=== PATIENT | female | born 1955 | race African-American/Black ===

== ENCOUNTER 2025-03-23 13:01 | Inpatient (IN) | payer MEDICARE, MEDICAID ==
[~2025-03-23] VITALS: Ht 162.6 cm; Wt 87.7 kg
[~2025-03-23 13:01] MED LIST: AMLO10TA80 PO; ATOR40TA70 PO; FURO40TA5 PO; GABA-529 PO; HYDR100T31 PO; IPRA3AMP9 HHN; METH4TAB95 MT; MONT-46 PO; TRAZ-251 PO
[2025-03-23 15:32] LABS: BASOPHILS % 0.9 % (0.0-2.0); EOSINOPHILS % 1.2 % (0.0-5.0); HEMATOCRIT. 37.2 % (36.0-48.0); HEMOGLOBIN. 11.4 g/dL (12.0-16.0); LYMPHOCYTES % 10.1 % (20.0-50.0); MEAN PLATELET VOLUME 8.4 fl (7.4-10.4); MONOCYTES % 11.0 % (2.0-8.0); NEUTROPHILS % 76.8 % (40.0-76.0); PLATELET 322 x1000/uL (130-400); RED BLOOD CELL COUNT 3.98 mill/uL (4.2-5.4); RED CELL DISTRIBUTION WIDTH 17.0 % (11.6-14.6)
[2025-03-23 15:47] LABS: UREA NITROGEN BLOOD 22 mg/dL (9-23)
[2025-03-23 15:49] LABS: ASPARTATE AMINOTRANSFERASE 13 IU/L (<34)
[2025-03-23 15:50] LABS: BILIRUBIN DIRECT 0.2 mg/dL (<=3.0); BILIRUBIN TOTAL 0.3 mg/dL (0.1-1.0); PROTEIN TOTAL 6.5 g/dL (6.0-8.3)
[2025-03-23 15:51] LABS: CREATININE 1.6 mg/dL (0.6-1.0)
[2025-03-23 16:11] LABS: TROPONIN I HIGH SENSITIVITY 1190 ng/L (3.0-34)
[2025-03-23] MEDS: CEFTRIAXONE 1GM/50ML 50 ML IV ONE (16:28)
[2025-03-23] MEDS: SODIUM CHLORIDE 0.9% 100 ML IV ONE (16:29)
[2025-03-23] MEDS ORDERED: MAGNESIUM/ALUMINUM HYDROXIDE/SIMETHICONE 30ML UDC PO PRN (16:30)
[2025-03-23] MEDS ORDERED: NALOXONE HCL 0.4MG/ML VIAL IV PRN (16:30)
[2025-03-23] MEDS ORDERED: ONDANSETRON HCL 4MG/2ML INJ IV PRN (16:30)
[2025-03-23] MEDS ORDERED: DEXTROSE 50% WATER 50ML SYRINGE IV PRN (16:30)
[2025-03-23] MEDS ORDERED: HYDROCODONE/ACETAMINOPHEN 5/325MG TABLET PO PRN (16:30)
[2025-03-23] MEDS ORDERED: MORPHINE SULFATE 2 MG/ML INJ (NOT FOR IM USE) IV PRN (16:30)
[2025-03-23 16:56] LABS: INR 1.0
[2025-03-23] MEDS: BLOOD SUGAR DIAGNOSTIC STRIP TEST SCH (17:00)
[2025-03-23] MEDS: AZITHROMYCIN 500MG/250ML 250 ML IV ONE (17:19)
[2025-03-23] MEDS: ENOXAPARIN 30MG/0.3ML SYR SUBCUT SCH (17:33)
[2025-03-23] MEDS: PIPERACILLIN/TAZO 3.375G/50ML 50 ML IV SCH (17:33)
[2025-03-23 17:34] LABS: TROPONIN I HIGH SENSITIVITY 1102 ng/L (3.0-34)
[2025-03-23] MEDS: INSULIN LISPRO 100 UNITS/ML SUBCUT SCH (18:20)
[2025-03-23 20:00] VITALS: BP 129/49; PULSE 84; RESP 19; TEMP 36.6; O2SAT 93
[2025-03-23] MEDS ORDERED: IPRATROPIUM/ALBUTEROL 0.5-3(2.5)MG/3ML NEB HHN PRN (21:30)
[2025-03-23 22:00] VITALS: BP 129/49; PULSE 84; RESP 19; TEMP 36.5848
[2025-03-24] VITALS: BP 119/50; PULSE 79; RESP 18; TEMP 36.2; O2SAT 98
[2025-03-24 00:19] LABS: TROPONIN I HIGH SENSITIVITY 1104 ng/L (3.0-34)
[2025-03-24] MEDS: ATORVASTATIN CALCIUM 40MG TABLET PO SCH (01:01)
[2025-03-24] MEDS: VANCOMYCIN 1.25GM/250ML IV SCH (01:01)
[2025-03-24 04:00] VITALS: BP 120/48; PULSE 80; RESP 18; TEMP 36.1; O2SAT 98
[2025-03-24] MEDS: FUROSEMIDE 40MG TABLET PO SCH (06:47)
[2025-03-24 07:46] LABS: BASOPHILS % 0.4 % (0.0-2.0); EOSINOPHILS % 1.8 % (0.0-5.0); HEMATOCRIT. 36.9 % (36.0-48.0); HEMOGLOBIN. 11.1 g/dL (12.0-16.0); LYMPHOCYTES % 7.1 % (20.0-50.0); MEAN PLATELET VOLUME 8.4 fl (7.4-10.4); MONOCYTES % 8.2 % (2.0-8.0); NEUTROPHILS % 82.5 % (40.0-76.0); PLATELET 328 x1000/uL (130-400); RED BLOOD CELL COUNT 3.91 mill/uL (4.2-5.4); RED CELL DISTRIBUTION WIDTH 17.0 % (11.6-14.6)
[2025-03-24 07:53] LABS: CREATININE 1.7 mg/dL (0.6-1.0); UREA NITROGEN BLOOD 23.0 mg/dL (9-23)
[2025-03-24 08:02] LABS: TROPONIN I HIGH SENSITIVITY 1022 ng/L (3.0-34)
[2025-03-24] MEDS: PANTOPRAZOLE SODIUM 40 MG/VIAL IV SCH (09:00)
[2025-03-24] MEDS: HYDRALAZINE HCL 100MG TABLET PO SCH (09:00)
[2025-03-24] MEDS: AMLODIPINE 10MG TABLET PO SCH (09:00)
[2025-03-24] MEDS: GABAPENTIN 100MG CAPSULE PO SCH (09:00)
[2025-03-24] MEDS: ENOXAPARIN 30MG/0.3ML SYR SUBCUT SCH (09:00)
[2025-03-24] MEDS: ENOXAPARIN 60MG/0.6ML SYR SUBCUT SCH (10:00)
[2025-03-24 10:47] LABS: CREATININE 1.7 mg/dL (0.6-1.0); UREA NITROGEN BLOOD 20.0 mg/dL (9-23)
[2025-03-24 12:00] VITALS: BP 146/59; PULSE 84; RESP 16; TEMP 36.3; O2SAT 97
[2025-03-24 16:00] VITALS: BP 140/62; PULSE 76; TEMP 36.4
[2025-03-24] MEDS: MONTELUKAST SODIUM 10MG TABLET PO SCH (19:01)
[2025-03-24] MEDS: IPRATROPIUM/ALBUTEROL 0.5-3(2.5)MG/3ML NEB HHN SCH (20:40)
[2025-03-24] MEDS: VANCOMYCIN 750MG/150ML (BAXTER) IV SCH (20:40)
[2025-03-24 20:42] VITALS: PULSE 93; RESP 20; O2SAT 97
[2025-03-24] MEDS: TRAZODONE HCL 50MG TABLET PO SCH (21:41)
[2025-03-25] VITALS (7 sets, daily range): BP systolic 92–127; BP diastolic 37–81; PULSE 80–92; RESP 13–20; TEMP 36.3–36.7; O2SAT 80–99
[2025-03-25 07:07] LABS: UREA NITROGEN BLOOD 26.0 mg/dL (9-23)
[2025-03-25 07:08] LABS: LACTATE DEHYDROGENASE 188.0 IU/L (120-246)
[2025-03-25 07:09] LABS: HEMATOCRIT. 40.6 % (36.0-48.0); HEMOGLOBIN. 12.3 g/dL (12.0-16.0); MEAN PLATELET VOLUME 8.5 fl (7.4-10.4); PLATELET 333 x1000/uL (130-400); RED BLOOD CELL COUNT 4.33 mill/uL (4.2-5.4); RED CELL DISTRIBUTION WIDTH 17.3 % (11.6-14.6)
[2025-03-25 08:14] LABS: CREATININE 2.3 mg/dL (0.6-1.0)
[2025-03-25] MEDS: FUROSEMIDE 40MG TABLET PO SCH (19:39)
[2025-03-25 22:54] LABS: BAND% 4.0 % (1.0-6.0); LYMPHOCYTES % MANUAL 1.0 % (20.0-60.0); MONOCYTES % MANUAL 7.0 % (2.0-8.0); NEUTROPHILS % MANUAL 88.0 % (45.0-75.0)
[2025-03-25 22:55] LABS: PLATELET ESTIMATE NORMAL
[2025-03-26] VITALS (9 sets, daily range): BP systolic 104–131; BP diastolic 32–61; PULSE 71–94; RESP 13–19; TEMP 36.2–36.6; O2SAT 94–98
[2025-03-26 07:06] LABS: HEMATOCRIT. 38.4 % (36.0-48.0); HEMOGLOBIN. 11.8 g/dL (12.0-16.0); MEAN PLATELET VOLUME 8.6 fl (7.4-10.4); PLATELET 308 x1000/uL (130-400); RED BLOOD CELL COUNT 4.15 mill/uL (4.2-5.4); RED CELL DISTRIBUTION WIDTH 17.0 % (11.6-14.6)
[2025-03-26 07:14] LABS: UREA NITROGEN BLOOD 35.0 mg/dL (9-23)
[2025-03-26 07:31] LABS: CREATININE 3.4 mg/dL (0.6-1.0)
[2025-03-26] MEDS: SODIUM CHLORIDE 0.9% 1,000 ML IV SCH (12:59)
[2025-03-26] MEDS: METHYLPREDNISOLONE SOD SUCC 40MG/ML (ACT-O-VIAL) IV SCH (14:09)
[2025-03-26 16:01] LABS: BG BASE EXCESS -3.8 mmol/L (-2.0-3.0); BG CARBOXYHEMOGLOBIN 1.7 % (0.5-1.5); BG DEOXYHEMOGLOBIN 10.5 % (0.0-5.0); BG FLOW(L/min) 2.00 L/min; BG FRACTION INSPIRED OXYGEN 28; BG HCO3 ACT 22.8 mmol/L (21.0-28.0); BG METHEMOGLOBIN 0.2 % (0.5-1.5); BG OXYGEN SATURATION 89.3 % (94.0-98.0); BG OXYHEMOGLOBIN 87.6 % (94.0-98.0); BG PCO2 47.9 mmHg (32.0-45.0); BG PH 7.296 (7.350-7.450); BG PO2 56.7 mmHg (83.0-108.0); BG SAMPLE SITE RIGHT RADIAL; BG TOTAL HEMOGLOBIN 12.4 g/dL (12.0-16.0); BG VENT MODE NASAL CANNULA
[2025-03-26 17:28] LABS: EOSINOPHILS % MANUAL 3.0 % (0.0-5.0); LYMPHOCYTES % MANUAL 1.0 % (20.0-60.0); MONOCYTES % MANUAL 9.0 % (2.0-8.0); NEUTROPHILS % MANUAL 87.0 % (45.0-75.0); PLATELET ESTIMATE NORMAL
[2025-03-27] VITALS (10 sets, daily range): BP systolic 116–158; BP diastolic 35–88; PULSE 80–95; RESP 16–20; TEMP 35.6–36.6; O2SAT 93–100
[2025-03-27 07:31] LABS: CREATININE 4.3 mg/dL (0.6-1.0); UREA NITROGEN BLOOD 42.0 mg/dL (9-23)
[2025-03-27] MEDS: ZOLPIDEM TARTRATE 5MG TABLET PO PRN (23:20)
[2025-03-28] VITALS (10 sets, daily range): BP systolic 109–141; BP diastolic 29–54; PULSE 79–93; RESP 12–20; TEMP 35.9–36.7; O2SAT 92–99
[2025-03-28] MEDS ORDERED: CEFEPIME 1GM IN DEXT 5% 50ML IV SCH (08:00)
[2025-03-28] MEDS: IPRATROPIUM/ALBUTEROL 0.5-3(2.5)MG/3ML NEB HHN SCH (08:23)
[2025-03-28 08:31] LABS: UREA NITROGEN BLOOD 47.0 mg/dL (9-23)
[2025-03-28 08:41] LABS: CREATININE 5.0 mg/dL (0.6-1.0)
[2025-03-28] MEDS: AZITHROMYCIN 500 MG TABLET PO SCH (08:47)
[2025-03-28] MEDS ORDERED: CEFTRIAXONE 1GM/50ML 50 ML IV SCH (09:00)
[2025-03-28] MEDS: CEFEPIME 1GM/50ML 50 ML IV SCH (09:53)
[2025-03-28] MEDS: METHYLPREDNISOLONE SOD SUCC 125MG/2ML (ACT-O-VIAL) IV SCH (11:46)
[2025-03-29] VITALS (10 sets, daily range): BP systolic 126–167; BP diastolic 45–62; PULSE 58–92; RESP 15–20; TEMP 35.9–36.7; O2SAT 95–98
[2025-03-29 06:14] LABS: UREA NITROGEN BLOOD 52.0 mg/dL (9-23)
[2025-03-29 06:21] LABS: CREATININE 5.7 mg/dL (0.6-1.0)
[2025-03-29] MEDS: SODIUM BICARBONATE 4.2% 2.5MEQ/5ML VIAL IV ONE (07:45)
[2025-03-29 12:45] LABS: BODY FLUID MONOCYTES 6 %; BODY FLUID RBC 7675 /cu mm (0-2000); BODY FLUID WBC 1498 /cu mm (0-200)
[2025-03-30] VITALS (60 sets, daily range): BP systolic 109–162; BP diastolic 41–112; PULSE 78–104; RESP 0–22; TEMP 35–36.8; O2SAT 94–100
[2025-03-30] MEDS ORDERED: TALC 3 GM VIAL IX NR (06:15)
[2025-03-30] MEDS ORDERED: POLYMYXIN B SULFATE 500000 UNITS/VIAL ONE (07:29)
[2025-03-30] MEDS ORDERED: BACITRACIN 14GM TUBE TOP ONE (07:29)
[2025-03-30] MEDS ORDERED: LIDOCAINE HCL/EPINEPHRINE 1%-EPI 1:100,000 20ML VIAL ONE (07:30)
[2025-03-30] MEDS ORDERED: BUPIVACAINE HCL/PF 0.5% (5MG/ML) 10ML ONE (07:30)
[2025-03-30] MEDS ORDERED: PROPOFOL 200MG/20ML VIAL IV ONE (07:39)
[2025-03-30] MEDS ORDERED: ROCURONIUM BROMIDE 10MG/ML VIAL 5ML IV ONE ×2 (07:39→09:34)
[2025-03-30] MEDS ORDERED: FENTANYL CITRATE/PF 50MCG/ML 2ML VIAL ONE ×2 (07:40→08:44)
[2025-03-30 07:41] LABS: CLARITY URINE CLOUDY (CLEAR); COLOR URINE DARK YELLOW (YELLOW); GLUCOSE URINE NEGATIVE (NEGATIVE); KETONES URINE NEGATIVE (NEGATIVE); LEUKOCYTE ESTERASE URINE 2+ (NEGATIVE); NITRITE URINE NEGATIVE (NEGATIVE); OCCULT BLOOD URINE NEGATIVE (NEGATIVE); PH URINE 5.0 (4.5-8.0); PROTEIN URINE 1+ (NEGATIVE); SPECIFIC GRAVITY URINE 1.029 (1.005-1.030); UROBILINOGEN URINE 0.2 E.U./dL (0.2-1.0)
[2025-03-30] MEDS ORDERED: PHENYLEPHRINE HCL 10MG/ML 1ML IV ONE (07:44)
[2025-03-30 08:17] LABS: SQUAMOUS EPITHELIAL CELL URINE RARE /lpf (RARE/1+)
[2025-03-30 08:18] LABS: WBC URINE 50-100 /hpf (0-2)
[2025-03-30 08:19] LABS: BACTERIA URINE 1+; RBC URINE NONE SEEN /hpf (0-2); YEAST URINE 3+
[2025-03-30] MEDS ORDERED: ATROPINE SULFATE 1MG/10ML SYR ONE (08:35)
[2025-03-30 08:47] LABS: *AMPHETAMINES SCREEN URINE NEGATIVE (NEGATIVE); *BARBITURATES SCREEN URINE NEGATIVE (NEGATIVE); *BENZODIAZEPINES SCREEN URINE NEGATIVE (NEGATIVE); *COCAINE SCREEN URINE NEGATIVE (NEGATIVE); CANNABINOID URINE SCREEN NEGATIVE (NEGATIVE); ECSTASY MDMA SCREEN URINE NEGATIVE (NEGATIVE); METHADONE URINE SCREEN NEGATIVE (NEGATIVE); OPIATES URINE SCREEN NEGATIVE (NEGATIVE); PHENCYCLIDINE URINE SCREEN NEGATIVE (NEGATIVE)
[2025-03-30] MEDS: FAMOTIDINE 20MG/2ML VIAL IV SCH (09:00)
[2025-03-30] MEDS ORDERED: SODIUM BICARBONATE 8.4% 50MEQ/50ML SYR IV ONE (09:25)
[2025-03-30] MEDS ORDERED: PROPOFOL 10MG/ML 100ML 100 ML IV ONE (09:30)
[2025-03-30] MEDS ORDERED: CEFAZOLIN SODIUM 1000MG/VIAL ONE (09:38)
[2025-03-30] MEDS ORDERED: EPHEDRINE SULFATE 50MG/ML VIAL ONE (09:39)
[2025-03-30] MEDS ORDERED: ONDANSETRON HCL 4MG/2ML INJ ONE (09:39)
[2025-03-30] MEDS ORDERED: METOCLOPRAMIDE HCL 10MG/2ML VIAL ONE (09:39)
[2025-03-30] MEDS ORDERED: DEXAMETHASONE 4MG/ML 1ML VIAL ONE (09:39)
[2025-03-30 09:43] LABS: BG BASE EXCESS -11.3 mmol/L (-2.0-3.0); BG CARBOXYHEMOGLOBIN 0.7 % (0.5-1.5); BG DEOXYHEMOGLOBIN 0.0 % (0.0-5.0); BG FLOW(L/min) 15.00 L/min; BG FRACTION INSPIRED OXYGEN 100; BG HCO3 ACT 14.9 mmol/L (21.0-28.0); BG METHEMOGLOBIN 0.4 % (0.5-1.5); BG OXYGEN SATURATION 100.0 % (94.0-98.0); BG OXYHEMOGLOBIN 98.9 % (94.0-98.0); BG PCO2 34.7 mmHg (32.0-45.0); BG PH 7.252 (7.350-7.450); BG PO2 386.5 mmHg (83.0-108.0); BG SAMPLE SITE ALINE; BG TOTAL HEMOGLOBIN 12.1 g/dL (12.0-16.0); BG VENT MODE MASK - NRB
[2025-03-30 11:29] LABS: BG BASE EXCESS -7.9 mmol/L (-2.0-3.0); BG CARBOXYHEMOGLOBIN 0.7 % (0.5-1.5); BG DEOXYHEMOGLOBIN 0.3 % (0.0-5.0); BG FRACTION INSPIRED OXYGEN 100; BG HCO3 ACT 19.7 mmol/L (21.0-28.0); BG METHEMOGLOBIN 0.1 % (0.5-1.5); BG OXYGEN SATURATION 99.7 % (94.0-98.0); BG OXYHEMOGLOBIN 98.9 % (94.0-98.0); BG PCO2 48.8 mmHg (32.0-45.0); BG PEEP (cmH2O) 7.0 cmH2O; BG PH 7.224 (7.350-7.450); BG PO2 542.4 mmHg (83.0-108.0); BG SAMPLE SITE ALINE; BG TIDAL VOLUME(mL) 400.0 mL; BG TOTAL HEMOGLOBIN 12.7 g/dL (12.0-16.0); BG TOTAL RESPIRATORY RATE 15 b/min; BG VENT MODE VENT - AC; BG VENT RATE 15.0 set
[2025-03-30] MEDS: SODIUM BICARBONATE 8.4% 50MEQ/50ML SYR IV SCH (12:10)
[2025-03-30 12:22] LABS: UREA NITROGEN BLOOD 61 mg/dL (9-23)
[2025-03-30 12:23] LABS: CREATININE 6.2 mg/dL (0.6-1.0)
[2025-03-30 12:25] LABS: PHOSPHORUS 6.2 mg/dL (2.5-4.9)
[2025-03-30 12:43] LABS: PROTEIN BODY FLUID < 2.0 gm/dL
[2025-03-30 13:05] LABS: BG BASE EXCESS -3.2 mmol/L (-2.0-3.0); BG CARBOXYHEMOGLOBIN 0.7 % (0.5-1.5); BG DEOXYHEMOGLOBIN 0.2 % (0.0-5.0); BG FRACTION INSPIRED OXYGEN 50; BG HCO3 ACT 21.6 mmol/L (21.0-28.0); BG METHEMOGLOBIN 0.1 % (0.5-1.5); BG OXYGEN SATURATION 99.8 % (94.0-98.0); BG OXYHEMOGLOBIN 99.0 % (94.0-98.0); BG PCO2 38.1 mmHg (32.0-45.0); BG PEEP (cmH2O) 5.0 cmH2O; BG PH 7.372 (7.350-7.450); BG PO2 207.0 mmHg (83.0-108.0); BG SAMPLE SITE ALINE; BG TIDAL VOLUME(mL) 450.0 mL; BG TOTAL HEMOGLOBIN 12.8 g/dL (12.0-16.0); BG VENT MODE VENT - AC; BG VENT RATE 22.0 set
[2025-03-30 13:06] LABS: BODY FLUID RBC 10025 /cu mm (0-2000); BODY FLUID WBC 360 /cu mm (0-200)
[2025-03-30] MEDS: NICARDIPINE 50 MG in SODIUM CHLORIDE 0.9% 230 ML IV PRN (13:34)
[2025-03-30] MEDS: MIDAZOLAM 100MG/100ML PMX 100 ML IV PRN (14:33)
[2025-03-30 16:18] LABS: BG BASE EXCESS -4.2 mmol/L (-2.0-3.0); BG CARBOXYHEMOGLOBIN 1.2 % (0.5-1.5); BG DEOXYHEMOGLOBIN 2.7 % (0.0-5.0); BG FRACTION INSPIRED OXYGEN 30; BG HCO3 ACT 19.7 mmol/L (21.0-28.0); BG METHEMOGLOBIN 0.2 % (0.5-1.5); BG OXYGEN SATURATION 97.3 % (94.0-98.0); BG OXYHEMOGLOBIN 95.9 % (94.0-98.0); BG PCO2 32.7 mmHg (32.0-45.0); BG PEEP (cmH2O) 5.0 cmH2O; BG PH 7.398 (7.350-7.450); BG PO2 87.2 mmHg (83.0-108.0); BG SAMPLE SITE ALINE; BG TIDAL VOLUME(mL) 400.0 mL; BG TOTAL HEMOGLOBIN 12.5 g/dL (12.0-16.0); BG TOTAL RESPIRATORY RATE 22 b/min; BG VENT MODE VENT - AC; BG VENT RATE 22.0 set
[2025-03-30 18:19] LABS: HEMATOCRIT. 36.8 % (36.0-48.0); HEMOGLOBIN. 11.5 g/dL (12.0-16.0); MEAN PLATELET VOLUME 8.8 fl (7.4-10.4); PLATELET 324 x1000/uL (130-400); RED BLOOD CELL COUNT 4.03 mill/uL (4.2-5.4); RED CELL DISTRIBUTION WIDTH 16.5 % (11.6-14.6)
[2025-03-30] MEDS: METHYLPREDNISOLONE SOD SUCC 40MG/ML (ACT-O-VIAL) IV SCH (21:40)
[2025-03-30 21:52] LABS: BAND% 1.0 % (1.0-6.0); LYMPHOCYTES % MANUAL 7.0 % (20.0-60.0); MONOCYTES % MANUAL 3.0 % (2.0-8.0); NEUTROPHILS % MANUAL 89.0 % (45.0-75.0); PLATELET ESTIMATE NORMAL
[2025-03-30] MEDS ORDERED: METHYLPREDNISOLONE SOD SUCC 125MG/2ML (ACT-O-VIAL) IV SCH (22:00)
[2025-03-31] VITALS (105 sets, daily range): BP systolic 119–152; BP diastolic 51–109; PULSE 72–87; RESP 7–26; TEMP 36.4–36.6; O2SAT 93–100
[2025-03-31 06:25] LABS: HEMATOCRIT. 35.4 % (36.0-48.0); HEMOGLOBIN. 11.2 g/dL (12.0-16.0); MEAN PLATELET VOLUME 8.4 fl (7.4-10.4); PLATELET 341 x1000/uL (130-400); RED BLOOD CELL COUNT 3.95 mill/uL (4.2-5.4); RED CELL DISTRIBUTION WIDTH 16.9 % (11.6-14.6)
[2025-03-31 06:39] LABS: UREA NITROGEN BLOOD 66 mg/dL (9-23)
[2025-03-31 06:41] LABS: PHOSPHORUS 4.7 mg/dL (2.5-4.9)
[2025-03-31 06:52] LABS: CREATININE 6.0 mg/dL (0.6-1.0)
[2025-03-31 09:12] LABS: BG BASE EXCESS -4.4 mmol/L (-2.0-3.0); BG CARBOXYHEMOGLOBIN 1.8 % (0.5-1.5); BG DEOXYHEMOGLOBIN 3.2 % (0.0-5.0); BG FRACTION INSPIRED OXYGEN 30; BG HCO3 ACT 19.1 mmol/L (21.0-28.0); BG METHEMOGLOBIN 0.1 % (0.5-1.5); BG OXYGEN SATURATION 96.7 % (94.0-98.0); BG OXYHEMOGLOBIN 94.9 % (94.0-98.0); BG PCO2 30.6 mmHg (32.0-45.0); BG PEEP (cmH2O) 5.0 cmH2O; BG PH 7.414 (7.350-7.450); BG PO2 87.4 mmHg (83.0-108.0); BG SAMPLE SITE ALINE; BG TIDAL VOLUME(mL) 400.0 mL; BG TOTAL HEMOGLOBIN 11.8 g/dL (12.0-16.0); BG VENT MODE VENT - AC; BG VENT RATE 22.0 set
[2025-03-31 10:36] LABS: BAND% 5.0 % (1.0-6.0); LYMPHOCYTES % MANUAL 2.0 % (20.0-60.0); MONOCYTES % MANUAL 6.0 % (2.0-8.0); NEUTROPHILS % MANUAL 87.0 % (45.0-75.0); NUCLEATED RED BLOOD CELLS 1 /100 WBC; PLATELET ESTIMATE NORMAL
[2025-03-31] MEDS: POTASSIUM CHLORIDE 20MEQ/PACKET PO SCH (12:56)
[2025-03-31 18:05] LABS: BG BASE EXCESS -5.2 mmol/L (-2.0-3.0); BG CARBOXYHEMOGLOBIN 0.9 % (0.5-1.5); BG DEOXYHEMOGLOBIN 3.0 % (0.0-5.0); BG FRACTION INSPIRED OXYGEN 30; BG HCO3 ACT 20.4 mmol/L (21.0-28.0); BG METHEMOGLOBIN 0.3 % (0.5-1.5); BG OXYGEN SATURATION 97.0 % (94.0-98.0); BG OXYHEMOGLOBIN 95.8 % (94.0-98.0); BG PCO2 40.0 mmHg (32.0-45.0); BG PEEP (cmH2O) 5.0 cmH2O; BG PH 7.326 (7.350-7.450); BG PO2 94.2 mmHg (83.0-108.0); BG SAMPLE SITE ALINE; BG TIDAL VOLUME(mL) 400.0 mL; BG TOTAL HEMOGLOBIN 12.9 g/dL (12.0-16.0); BG VENT MODE VENT - SIMV; BG VENT RATE 16.0 set
[2025-04-01] VITALS (95 sets, daily range): BP systolic 102–149; BP diastolic 47–75; PULSE 73–94; RESP 9–28; TEMP 36.1–37.1; O2SAT 95–100
[2025-04-01 06:44] LABS: UREA NITROGEN BLOOD 68 mg/dL (9-23)
[2025-04-01 06:46] LABS: CREATININE 5.9 mg/dL (0.6-1.0); PHOSPHORUS 6.3 mg/dL (2.5-4.9)
[2025-04-01] MEDS ORDERED: KCL 20MEQ/100ML PREMIX 100 ML IV SCH (07:30)
[2025-04-01 11:41] LABS: BG BASE EXCESS -5.9 mmol/L (-2.0-3.0); BG CARBOXYHEMOGLOBIN 1.5 % (0.5-1.5); BG DEOXYHEMOGLOBIN 4.4 % (0.0-5.0); BG FRACTION INSPIRED OXYGEN 28; BG HCO3 ACT 19.6 mmol/L (21.0-28.0); BG METHEMOGLOBIN 0.2 % (0.5-1.5); BG OXYGEN SATURATION 95.5 % (94.0-98.0); BG OXYHEMOGLOBIN 93.9 % (94.0-98.0); BG PCO2 39.0 mmHg (32.0-45.0); BG PEEP (cmH2O) 5.0 cmH2O; BG PH 7.320 (7.350-7.450); BG PO2 84.5 mmHg (83.0-108.0); BG SAMPLE SITE ALINE; BG TOTAL HEMOGLOBIN 12.5 g/dL (12.0-16.0); BG VENT MODE VENT - CPAP
[2025-04-01] MEDS: FUROSEMIDE 40MG/4ML VIAL IVP SCH (12:01)
[2025-04-01] MEDS: CALCIUM ACETATE 667MG CAPSULE PO SCH (13:12)
[2025-04-02] VITALS (85 sets, daily range): BP systolic 79–139; BP diastolic 45–88; PULSE 80–96; RESP 9–28; TEMP 36.5–37.2; O2SAT 94–100
[2025-04-02 07:38] LABS: UREA NITROGEN BLOOD 69.0 mg/dL (9-23)
[2025-04-02 08:18] LABS: CREATININE 5.7 mg/dL (0.6-1.0)
[2025-04-02 08:33] LABS: HEMATOCRIT. 32.9 % (36.0-48.0); HEMOGLOBIN. 10.3 g/dL (12.0-16.0); MEAN PLATELET VOLUME 9.1 fl (7.4-10.4); PLATELET 306 x1000/uL (130-400); RED BLOOD CELL COUNT 3.64 mill/uL (4.2-5.4); RED CELL DISTRIBUTION WIDTH 16.7 % (11.6-14.6)
[2025-04-02 09:51] LABS: BG BASE EXCESS -5.6 mmol/L (-2.0-3.0); BG CARBOXYHEMOGLOBIN 1.3 % (0.5-1.5); BG DEOXYHEMOGLOBIN 16.3 % (0.0-5.0); BG FRACTION INSPIRED OXYGEN 21; BG HCO3 ACT 20.1 mmol/L (21.0-28.0); BG METHEMOGLOBIN 0.3 % (0.5-1.5); BG OXYGEN SATURATION 83.4 % (94.0-98.0); BG OXYHEMOGLOBIN 82.1 % (94.0-98.0); BG PCO2 39.9 mmHg (32.0-45.0); BG PH 7.320 (7.350-7.450); BG PO2 49.9 mmHg (83.0-108.0); BG SAMPLE SITE ALINE; BG TOTAL HEMOGLOBIN 11.1 g/dL (12.0-16.0); BG VENT MODE ROOM AIR
[2025-04-02] MEDS: LINEZOLID 600 MG PREMIX 300 ML IV SCH (15:43)
[2025-04-02 16:09] LABS: LYMPHOCYTES % MANUAL 5.0 % (20.0-60.0); MONOCYTES % MANUAL 8.0 % (2.0-8.0); NEUTROPHILS % MANUAL 87.0 % (45.0-75.0)
[2025-04-02 16:10] LABS: PLATELET ESTIMATE NORMAL
[2025-04-03] VITALS (12 sets, daily range): BP systolic 116–144; BP diastolic 48–66; PULSE 91–97; RESP 15–27; TEMP 36.4–37.1; O2SAT 95–100
[2025-04-03] MEDS: MICAFUNGIN 100 MG in SODIUM CHLORIDE 0.9% 100 ML IV SCH (00:01)
[2025-04-03 07:23] LABS: UREA NITROGEN BLOOD 83.0 mg/dL (9-23)
[2025-04-03 07:25] LABS: PHOSPHORUS 5.4 mg/dL (2.5-4.9)
[2025-04-03 08:48] LABS: CREATININE 5.2 mg/dL (0.6-1.0)
[2025-04-04] VITALS (13 sets, daily range): BP systolic 100–144; BP diastolic 41–55; PULSE 85–97; RESP 14–42; TEMP 36.7–36.9; O2SAT 91–100
[2025-04-04] MEDS: ACETAMINOPHEN 325MG TABLET PO PRN (09:46)
[2025-04-04 11:40] LABS: BG BASE EXCESS -5.6 mmol/L (-2.0-3.0); BG CARBOXYHEMOGLOBIN 2.2 % (0.5-1.5); BG DEOXYHEMOGLOBIN 13.2 % (0.0-5.0); BG FLOW(L/min) 2.50 L/min; BG FRACTION INSPIRED OXYGEN 30; BG HCO3 ACT 21.6 mmol/L (21.0-28.0); BG METHEMOGLOBIN 0.1 % (0.5-1.5); BG OXYGEN SATURATION 86.5 % (94.0-98.0); BG OXYHEMOGLOBIN 84.5 % (94.0-98.0); BG PCO2 50.5 mmHg (32.0-45.0); BG PH 7.250 (7.350-7.450); BG PO2 58.3 mmHg (83.0-108.0); BG SAMPLE SITE RIGHT RADIAL; BG TOTAL HEMOGLOBIN 10.6 g/dL (12.0-16.0); BG VENT MODE NASAL CANNULA
[2025-04-04] MEDS: ENOXAPARIN 30MG/0.3ML SYR SUBCUT SCH (15:23)
[2025-04-04 18:00] LABS: HEMATOCRIT. 31.3 % (36.0-48.0); HEMOGLOBIN. 9.6 g/dL (12.0-16.0); MEAN PLATELET VOLUME 10.0 fl (7.4-10.4); PLATELET 231 x1000/uL (130-400); RED BLOOD CELL COUNT 3.42 mill/uL (4.2-5.4); RED CELL DISTRIBUTION WIDTH 17.0 % (11.6-14.6)
[2025-04-04 18:39] LABS: UREA NITROGEN BLOOD 71.0 mg/dL (9-23)
[2025-04-04 18:42] LABS: CREATININE 5.3 mg/dL (0.6-1.0)
[2025-04-04 19:23] LABS: LYMPHOCYTES % MANUAL 5.0 % (20.0-60.0); MONOCYTES % MANUAL 3.0 % (2.0-8.0); NEUTROPHILS % MANUAL 92.0 % (45.0-75.0); PLATELET ESTIMATE NORMAL
[2025-04-05] VITALS (16 sets, daily range): BP systolic 104–142; BP diastolic 44–117; PULSE 76–87; RESP 9–21; TEMP 36.4–36.9; O2SAT 89–100
[2025-04-05 08:01] LABS: HEMATOCRIT. 30.9 % (36.0-48.0); HEMOGLOBIN. 9.6 g/dL (12.0-16.0); MEAN PLATELET VOLUME 9.2 fl (7.4-10.4); PLATELET 242 x1000/uL (130-400); RED BLOOD CELL COUNT 3.42 mill/uL (4.2-5.4); RED CELL DISTRIBUTION WIDTH 16.8 % (11.6-14.6)
[2025-04-05 08:35] LABS: UREA NITROGEN BLOOD 77.0 mg/dL (9-23)
[2025-04-05 09:25] LABS: CREATININE 5.3 mg/dL (0.6-1.0)
[2025-04-05] MEDS: SODIUM BICARBONATE 4.2% 2.5MEQ/5ML VIAL IV ONE (10:42)
[2025-04-05] MEDS: IOHEXOL-350 100 ML BOTTLE ONE (10:42)
[2025-04-05 12:50] LABS: BG BASE EXCESS -5.4 mmol/L (-2.0-3.0); BG CARBOXYHEMOGLOBIN 0.5 % (0.5-1.5); BG DEOXYHEMOGLOBIN 1.7 % (0.0-5.0); BG FLOW(L/min) 30.00 L/min; BG FRACTION INSPIRED OXYGEN 85; BG HCO3 ACT 21.1 mmol/L (21.0-28.0); BG METHEMOGLOBIN 0.3 % (0.5-1.5); BG OXYGEN SATURATION 98.3 % (94.0-98.0); BG OXYHEMOGLOBIN 97.5 % (94.0-98.0); BG PCO2 45.6 mmHg (32.0-45.0); BG PH 7.283 (7.350-7.450); BG PO2 111.6 mmHg (83.0-108.0); BG SAMPLE SITE RIGHT RADIAL; BG TOTAL HEMOGLOBIN 10.3 g/dL (12.0-16.0); BG VENT MODE HIGH FLOW
[2025-04-05 18:32] LABS: EOSINOPHILS % MANUAL 2.0 % (0.0-5.0); LYMPHOCYTES % MANUAL 4.0 % (20.0-60.0); MONOCYTES % MANUAL 12.0 % (2.0-8.0); NEUTROPHILS % MANUAL 82.0 % (45.0-75.0); PLATELET ESTIMATE NORMAL
[2025-04-06] VITALS (15 sets, daily range): BP systolic 109–169; BP diastolic 46–86; PULSE 81–94; RESP 10–24; TEMP 36.6–36.9; O2SAT 97–100
[2025-04-06 07:36] LABS: HEMATOCRIT. 29.7 % (36.0-48.0); HEMOGLOBIN. 9.1 g/dL (12.0-16.0); MEAN PLATELET VOLUME 9.7 fl (7.4-10.4); PLATELET 252 x1000/uL (130-400); RED BLOOD CELL COUNT 3.26 mill/uL (4.2-5.4); RED CELL DISTRIBUTION WIDTH 17.2 % (11.6-14.6)
[2025-04-06 07:45] LABS: UREA NITROGEN BLOOD 65.0 mg/dL (9-23)
[2025-04-06 07:46] LABS: CREATININE 5.1 mg/dL (0.6-1.0)
[2025-04-06 17:10] LABS: EOSINOPHILS % MANUAL 2.0 % (0.0-5.0); LYMPHOCYTES % MANUAL 2.0 % (20.0-60.0); MONOCYTES % MANUAL 7.0 % (2.0-8.0); NEUTROPHILS % MANUAL 89.0 % (45.0-75.0); PLATELET ESTIMATE NORMAL
[2025-04-06] MEDS: CLONIDINE 0.1MG TABLET PO PRN (18:59)
[2025-04-06] MEDS: GABAPENTIN SOLN 300MG/6ML UDC NG SCH (23:28)
[2025-04-07] VITALS (14 sets, daily range): BP systolic 127–161; BP diastolic 52–66; PULSE 79–95; RESP 12–19; TEMP 36.7–37; O2SAT 98–100
[2025-04-07] MEDS ORDERED: [UNRECOGNIZED DRUG - CODE] * (14:19)
[2025-04-07] MEDS ORDERED: CALC667C PO (14:19)
[2025-04-07] MEDS ORDERED: LOV30 SUBCUT (14:19)
[2025-04-07] MEDS ORDERED: MAGNESIUM/ALUMINUM HYDROXIDE/SIMETHICONE 30ML UDC NG PRN (22:00)
[2025-04-07] MEDS ORDERED: CLONIDINE 0.1MG TABLET NG PRN (22:30)
[2025-04-08] MEDS ORDERED: ACETAMINOPHEN 325MG TABLET NG PRN (00:30)
[2025-04-08] MEDS ORDERED: CALCIUM ACETATE 667MG CAPSULE NG SCH (09:00)
[2025-04-08] MEDS ORDERED: MONTELUKAST SODIUM 10MG TABLET NG SCH (17:00)
[2025-04-08] MEDS ORDERED: TRAZODONE HCL 50MG TABLET NG SCH (21:00)
[2025-04-08] MEDS ORDERED: ATORVASTATIN CALCIUM 40MG TABLET NG SCH (21:00)
== END 2025-04-07 20:00 | DRG 853 ==
LOC: ER 13:09 → EDBEDREQ 15:33 → EDBEDREQTM 15:33 → 6WST 20:16 → CVICU 03-30 11:10 → 5EST 04-02 21:35
PROVIDERS: ADMIT Internal Medicine; ATTEND Internal Medicine
PROC: 0W993ZZ Drainage of Right Pleural Cavity, Percutaneous Approach (ICD-10-PCS; 2025-03-24)
PROC: 0W993ZZ Drainage of Right Pleural Cavity, Percutaneous Approach (ICD-10-PCS; 2025-03-29)
PROC: 3E0L4GC Introduction of Other Therapeutic Substance into Pleural Cavity, Percutaneous Endoscopic Approach (ICD-10-PCS; principal; 2025-03-30)
PROC: 0W9940Z Drainage of Right Pleural Cavity with Drainage Device, Percutaneous Endoscopic Approach (ICD-10-PCS; 2025-03-30)
PROC: 5A1945Z Respiratory Ventilation, 24-96 Consecutive Hours (ICD-10-PCS; 2025-03-30)
PROC: 0BJ08ZZ Inspection of Tracheobronchial Tree, Via Natural or Artificial Opening Endoscopic (ICD-10-PCS; 2025-03-30)
PROC: 5A0945A Assistance with Respiratory Ventilation, 24-96 Consecutive Hours, High Flow/Velocity Cannula (ICD-10-PCS; 2025-04-04)
DX: A40.8 Other streptococcal sepsis (principal); G92.8 Other toxic encephalopathy; I21.4 Non-ST elevation (NSTEMI) myocardial infarction; I50.33 Acute on chronic diastolic (congestive) heart failure; J18.9 Pneumonia, unspecified organism; J96.21 Acute and chronic respiratory failure with hypoxia; J93.0 Spontaneous tension pneumothorax; J96.22 Acute and chronic respiratory failure with hypercapnia; I31.39 Other pericardial effusion (noninflammatory); J44.0 Chronic obstructive pulmonary disease with (acute) lower respiratory infection; N17.9 Acute kidney failure, unspecified; J90 Pleural effusion, not elsewhere classified; B95.2 Enterococcus as the cause of diseases classified elsewhere; I13.0 Hypertensive heart and chronic kidney disease with heart failure and stage 1 through stage 4 chronic kidney disease, or unspecified chronic kidney disease; N18.9 Chronic kidney disease, unspecified; E11.22 Type 2 diabetes mellitus with diabetic chronic kidney disease; D64.9 Anemia, unspecified; E66.9 Obesity, unspecified; F32.A Depression, unspecified; E87.4 Mixed disorder of acid-base balance; N13.30 Unspecified hydronephrosis; E11.51 Type 2 diabetes mellitus with diabetic peripheral angiopathy without gangrene; L30.9 Dermatitis, unspecified; Z96.659 Presence of unspecified artificial knee joint; E83.39 Other disorders of phosphorus metabolism; R32 Unspecified urinary incontinence; R80.9 Proteinuria, unspecified; L30.4 Erythema intertrigo; I49.3 Ventricular premature depolarization; E78.00 Pure hypercholesterolemia, unspecified; E87.6 Hypokalemia; Z86.718 Personal history of other venous thrombosis and embolism; Z89.611 Acquired absence of right leg above knee; Z68.33 Body mass index [BMI] 33.0-33.9, adult
CPT/HCPCS: 31720; 32555; 36415; 36600; 71045; 71250; 71275; 76770; 80048; 80076; 80202; 80305; 80307; 80329; 81003; 82040; 82140; 82330; 82375; 82550; 82805; 82962; 83605; 83615; 83735; 84100; 84145; 84155; 84443; 84484; 85025; 86850; 86900; 87070; 87075; 87077; 87102; 87106; 87116; 87186; 88108; 88312; 93005; 93306; 93970; 94002; 94003; 94070; 94640; 94664; 97162; 98960; 99285; A4606; A4615; C1725; C1751; J0456; J0461; J0665; J0690; J0692; J0696; J1100; J1308; J1650; J1815; J1938; J2004; J2020; J2248; J2250; J2371; J2405; J2470; J2543; J2704; J2765; J2919; J3010; J3373; J3490; J7030; J7050; Q9967; A4217